=== PATIENT | female | born 1945 | race Caucasian/White ===

== ENCOUNTER 2020-07-17 18:43 | Observation (INO) | payer MEDICARE, SELFPAY ==
[2020-07-17 21:06] LABS: Hemoglobin A1c 6.9 % (4.0-6.0)
[2020-07-17] MEDS ORDERED: Mag-Al 1200 mg/1200 mg/30 ML UDCUP PO SCH (23:30)
[2020-07-17] MEDS ORDERED: ALPRAZolam 0.5 MG TAB ONE (23:33)
[2020-07-17] MEDS ORDERED: Mag-Al 1200 mg/1200 mg/30 ML UDCUP ONE (23:33)
[2020-07-17] MEDS ORDERED: Gabapentin 300 MG CAP PO SCH (23:45)
[2020-07-17] MEDS ORDERED: ALPRAZolam 0.5 MG TAB PO SCH (23:45)
[2020-07-17] MEDS ORDERED: Atorvastatin Calcium 20 MG TAB PO SCH (23:45)
[2020-07-18] MEDS ORDERED: Acetaminophen 325 MG TAB PO PRN (01:55)
[2020-07-18] MEDS ORDERED: Dextrose 5% in Water 1,000 ML IV PRN (02:03)
[2020-07-18] MEDS ORDERED: Nitroglycerin 0.4 MG TAB (25 Tab Bottle) SL PRN (02:03)
[2020-07-18] MEDS ORDERED: HumaLOG 300 UNITS/3 ML VIAL SC PRN ×2 (02:03)
[2020-07-18] MEDS ORDERED: Dextrose 50% Abboject 50 ML SYRINGE SLOW IVP PRN (02:03)
[2020-07-18 02:06] LABS: Troponin I Less than 0.010 ng/mL (< 0.028)
[2020-07-18] MEDS ORDERED: Melatonin 3 MG TAB PO PRN (02:06)
[2020-07-18] MEDS ORDERED: Acetaminophen 325 MG TAB ONE (02:08)
[2020-07-18] MEDS ORDERED: Aspirin Chewable 81 MG TAB PO SCH (02:15)
[2020-07-18 05:19] LABS: #Eosinphils 0.1 thou/uL (0.0-0.7); #Lymphocytes 1.8 thou/uL (1.20-3.40); #Monocytes 0.5 thou/uL (0.11-0.59); #Neutrophils 4.4 thou/uL (1.40-6.50); %Basophils 0.6 % (0.0-1.0); %Eosinophils 1.6 % (0.0-10.0); %Lymphocytes 26.6 % (21.0-51.0); %Monocytes 7.1 % (0.0-10.0); %Neutrophils 64.1 % (42.0-75.0); Hemoglobin 12.2 g/dL (12.0-16.0); Mean Corpuscular HGB CONC 33.3 g/dL (32.0-36.0); Mean Corpuscular Hemoglobin 29.8 pg (27.0-31.0); Mean Corpuscular Volume 89.3 fL (78.0-98.0); Mean Platelet Volume 6.9 fL (7.4-10.4); Platelet Count 253 thou/uL (130-400); Red Blood Cell (RBC) Count 4.09 mill/uL (4.20-5.40); White Blood Cell (WBC) Count 6.9 thou/uL (4.8-10.8)
[2020-07-18 05:22] LABS: SARS-CoV-2 PCR by NAA Not Detected (NotDetected)
[2020-07-18 05:44] LABS: Anion Gap 12 mmol/L (10-20); BUN (Urea Nitrogen) 17 mg/dL (9.8-20.1); Calc. Creatinine Clearance 110 mL/min (70-130); Carbon Dioxide 27 mmol/L (23-31); Cardiac Risk 3.4 (Less than 4.5); Chloride 104 mmol/L (98-107); Cholesterol 167 mg/dl (< 200 Desired); Glucose 165 mg/dL (83-110); HDL Cholesterol 49 mg/dL (>60 Neg Risk); LDL Cholesterol, Calculated 94 mg/dL; Sodium 139 mmol/L (136-145); Triglycerides 118 mg/dL (Less than 150)
[2020-07-18] MEDS ORDERED: Regadenoson 0.4 MG/5 ML SYRINGE ONE (08:42)
[2020-07-18] MEDS ORDERED: Meclizine HCl 25 MG TAB PO PRN ×2 (10:34→12:30)
[2020-07-18] MEDS ORDERED: HYDROcodone/Acetaminophen 5/325 mg Tablet PO SCH ×2 (10:45→20:45)
[2020-07-18] MEDS ORDERED: Enoxaparin Sodium 40 MG/0.4 ML SYRINGE ONE (10:54)
[2020-07-18] MEDS ORDERED: HYDROcodone/Acetaminophen 5/325 mg Tablet ONE (10:54)
[2020-07-18] MEDS ORDERED: Meclizine HCl 25 MG TAB ONE (10:54)
[2020-07-18] MEDS ORDERED: Aspirin Chewable 81 MG TAB ONE (10:54)
[2020-07-18] MEDS: Enoxaparin Sodium 40 MG/0.4 ML SYRINGE SC SCH (11:02)
[2020-07-18] MEDS: Aspirin Chewable 81 MG TAB PO SCH (11:02)
[2020-07-18] MEDS ORDERED: ALPRAZolam 0.5 MG TAB PO PRN (12:40)
[2020-07-18] MEDS ORDERED: tiZANidine HCl 4 MG TAB PO PRN (12:45)
[2020-07-18] MEDS: metFORMIN 500 MG TAB PO SCH (20:01)
[2020-07-18 20:08] VITALS: BMI 33.5
[2020-07-18] MEDS ORDERED: Atorvastatin Calcium 20 MG TAB PO SCH (21:00)
[2020-07-18] MEDS ORDERED: Atorvastatin Calcium 10 MG TAB PO SCH (21:00)
[2020-07-18] MEDS ORDERED: ALPRAZolam 0.5 MG TAB PO SCH (21:00)
[2020-07-18] MEDS ORDERED: Gabapentin 300 MG CAP PO SCH ×2 (21:00)
[2020-07-19] MEDS ORDERED: HYDROcodone/Acetaminophen 5/325 mg Tablet PO SCH (00:15)
[2020-07-19] MEDS: metFORMIN 500 MG TAB PO SCH (08:10)
[2020-07-19] MEDS: Aspirin Chewable 81 MG TAB PO SCH (08:16)
[2020-07-19] MEDS: Enoxaparin Sodium 40 MG/0.4 ML SYRINGE SC SCH (08:16)
[2020-07-19 08:17] VITALS: BP 144/64; TEMP 98.1
[2020-07-19] MEDS ORDERED: Acetaminophen/Codeine 30-300mg Tablet PO SCH (10:15)
== END 2020-07-19 11:40 | disposition home or self-care (01) ==
LOC: ERS 18:43 → ERHOLD 19:59 → 2SW 07-18 19:52
PROVIDERS: ADMIT Family Medicine; ATTEND Family Medicine
DX: R07.89 Other chest pain (principal); I10 Essential (primary) hypertension; E78.5 Hyperlipidemia, unspecified; E11.9 Type 2 diabetes mellitus without complications; K21.9 Gastro-esophageal reflux disease without esophagitis; I48.91 Unspecified atrial fibrillation; I48.92 Unspecified atrial flutter; G43.909 Migraine, unspecified, not intractable, without status migrainosus; G89.29 Other chronic pain; M54.9 Dorsalgia, unspecified; Z86.73 Personal history of transient ischemic attack (TIA), and cerebral infarction without residual deficits; Z87.891 Personal history of nicotine dependence; Z79.84 Long term (current) use of oral hypoglycemic drugs; Z79.899 Other long term (current) drug therapy; Z20.822 Contact with and (suspected) exposure to COVID-19
CPT/HCPCS: 78452; 80048; 80061; 82962 ×2; 83036; 84443; 84484 ×2; 85025; 93005; 93017; 96372 ×2; 99285; A9500; G0378 ×4; U0003; U0005; 36415; 36416; 87635; J1650; J2785

== ENCOUNTER 2020-11-28 12:26 | Outpatient (CLI) | payer MEDICARE | END 2020-11-28 12:27 | disposition home or self-care (01) | LOC: BICMAMMO 12:26 | PROVIDERS: ATTEND Clinical Nurse Specialist Medical-Surgical | DX: N63.20 Unspecified lump in the left breast, unspecified quadrant (principal); N64.89 Other specified disorders of breast; R59.0 Localized enlarged lymph nodes | CPT/HCPCS: 76642; 77066; G0279 ==

== ENCOUNTER 2021-05-16 14:18 | Observation (INO) | payer MEDICARE ==
[~2021-05-16 14:18] MED LIST: Iopamidol 370 76% 100 ML VIAL ONE
[2021-05-16 15:25] LABS: #Lymphocytes 1.1 thou/uL (1.20-3.40); #Monocytes 0.2 thou/uL (0.11-0.59); #Neutrophils 5.7 thou/uL (1.40-6.50); %Basophils 0.6 % (0.0-1.0); %Eosinophils 0.4 % (0.0-10.0); %Lymphocytes 15.8 % (21.0-51.0); %Monocytes 3.1 % (0.0-10.0); %Neutrophils 80.1 % (42.0-75.0); Hemoglobin 11.1 g/dL (12.0-16.0); Mean Corpuscular HGB CONC 32.5 g/dL (32.0-36.0); Mean Corpuscular Hemoglobin 30.9 pg (27.0-31.0); Mean Corpuscular Volume 95.2 fL (78.0-98.0); Mean Platelet Volume 6.3 fL (7.4-10.4); Platelet Count 387 thou/uL (130-400); RBC Distribution Width 13.9 % (11.5-14.5); White Blood Cell (WBC) Count 7.1 thou/uL (4.8-10.8)
[2021-05-16 15:46] LABS: ALT (SGPT) 20 U/L (8-55); AST (SGOT) 12 U/L (5-34); Albumin 3.9 g/dL (3.4-4.8); Alkaline Phosphatase 78 U/L (40-110); Anion Gap 14 mmol/L (10-20); BUN (Urea Nitrogen) 11 mg/dL (9.8-20.1); Bilirubin, Total 0.5 mg/dL (0.2-1.2); Calc. Creatinine Clearance 0 mL/min (70-130); Calcium 8.8 mg/dL (7.8-10.44); Carbon Dioxide 30 mmol/L (23-31); Chloride 99 mmol/L (98-107); Globulin 2.7 g/dL (2.4-3.5); Glucose 190 mg/dL (83-110); Potassium 3.3 mmol/L (3.5-5.1); Protein, Total 6.6 g/dL (5.8-8.1); Sodium 140 mmol/L (136-145)
[2021-05-16] MEDS ORDERED: Electrolyte Replacement Protocol 1 EACH FS SCH ×2 (17:15→19:00)
[2021-05-16 17:22] LABS: SARS-CoV-2 NAA Rapid Test Not Detected (NotDetected)
[2021-05-16] MEDS ORDERED: Meclizine HCl 25 MG TAB PO PRN (17:32)
[2021-05-16] MEDS ORDERED: HumaLOG 300 UNITS/3 ML VIAL SC PRN ×2 (17:34→20:25)
[2021-05-16] MEDS ORDERED: Acetaminophen 325 MG TAB PO PRN (17:34)
[2021-05-16] MEDS ORDERED: Dextrose 5% in Water 1,000 ML IV PRN (17:34)
[2021-05-16] MEDS ORDERED: Ondansetron PF 4 MG/2 ML Vial IVP PRN (17:34)
[2021-05-16] MEDS ORDERED: Dextrose 50% Abboject 50 ML SYRINGE SLOW IVP PRN (17:34)
[2021-05-16 17:39] LABS: Lipase 26 U/L (8-78); Phosphorus 2.7 mg/dL (2.3-4.7)
[2021-05-16] MEDS ORDERED: Enoxaparin Sodium 40 MG/0.4 ML SYRINGE SC SCH (17:45)
[2021-05-16] MEDS ORDERED: Electrolyte Replacement Protocol FS PRN (17:45)
[2021-05-16] MEDS ORDERED: Magnesium 2 GM/50 ML BAG (IN WATER) ONE (17:50)
[2021-05-16] MEDS ORDERED: Potassium Bicarbonate/Cit Ac 25 MEQ TAB PO SCH (18:00)
[2021-05-16] MEDS ORDERED: tiZANidine HCl 4 MG TAB PO PRN (18:06)
[2021-05-16 18:37] LABS: Bilirubin Negative (Negative); Blood, Urine Small (Negative); Glucose, Urine (Dipstick) 100 mg/dL (Negative); Ketone, Urine Negative (Negative); Leukocyte Small (Negative); Nitrite Positive (Negative); Protein, Urine (Dipstick) Trace mg/dL (Neg-Trace)
[2021-05-16 18:43] LABS: Clarity Clear (Clear)
[2021-05-16 18:44] LABS: Bacteria/HPF 2+ HPF (None Seen); RBC/HPF 0-3 HPF (0-3); Squamous Epithelial 0-3 HPF (0-3)
[2021-05-16 19:06] LABS: Troponin I Less than 0.010 ng/mL (< 0.028)
[2021-05-16] MEDS: Magnesium Sulfate 3 GM in Sodium Chloride 0.9% 100 ML IVPB SCH ×2 (19:51→20:43)
[2021-05-16] MEDS ORDERED: cefTRIAXone\\ROCEPHIN 1 GM in Sodium Chloride 0.9% 100 ML IVPB SCH (20:00)
[2021-05-16] MEDS ORDERED: Diphenoxylate HCl/Atropine Tablet PO PRN (20:03)
[2021-05-16 20:11] VITALS: BMI 33.3
[2021-05-16] MEDS: ALPRAZolam 0.5 MG TAB PO PRN (20:44)
[2021-05-16] MEDS: HYDROcodone/Acetaminophen 5/325 mg Tablet PO PRN (20:45)
[2021-05-16] MEDS ORDERED: Gabapentin 300 MG CAP PO SCH (21:00)
[2021-05-16] MEDS ORDERED: Atorvastatin Calcium 10 MG TAB PO SCH (21:00)
[2021-05-17 01:44] LABS: Troponin I Less than 0.010 ng/mL (< 0.028)
[2021-05-17] MEDS: HYDROcodone/Acetaminophen 5/325 mg Tablet PO PRN ×2 (04:28→14:02)
[2021-05-17 05:17] LABS: #Lymphocytes 1.1 thou/uL (1.20-3.40); #Monocytes 0.1 thou/uL (0.11-0.59); #Neutrophils 5.3 thou/uL (1.40-6.50); %Eosinophils 0.2 % (0.0-10.0); %Lymphocytes 16.9 % (21.0-51.0); %Monocytes 1.4 % (0.0-10.0); %Neutrophils 81.5 % (42.0-75.0); Hemoglobin 11.1 g/dL (12.0-16.0); Mean Corpuscular HGB CONC 32.7 g/dL (32.0-36.0); Mean Corpuscular Hemoglobin 30.9 pg (27.0-31.0); Mean Corpuscular Volume 94.6 fL (78.0-98.0); Mean Platelet Volume 6.8 fL (7.4-10.4); Platelet Count 384 thou/uL (130-400); RBC Distribution Width 13.7 % (11.5-14.5); White Blood Cell (WBC) Count 6.5 thou/uL (4.8-10.8)
[2021-05-17 05:24] LABS: Anion Gap 15 mmol/L (10-20); BUN (Urea Nitrogen) 10 mg/dL (9.8-20.1); Calc. Creatinine Clearance 98 mL/min (70-130); Calcium 8.9 mg/dL (7.8-10.44); Carbon Dioxide 28 mmol/L (23-31); Chloride 100 mmol/L (98-107); Glucose 248 mg/dL (83-110); Magnesium 1.9 mg/dL (1.6-2.6); Potassium 4.1 mmol/L (3.5-5.1); Sodium 139 mmol/L (136-145)
[2021-05-17 05:41] LABS: Phosphorus 1.7 mg/dL (2.3-4.7)
[2021-05-17] MEDS ORDERED: Magnesium 2 GM/50 ML 2 GM in Premix Bag 1 BAG IVPB SCH (07:00)
[2021-05-17] MEDS ORDERED: metFORMIN XR 500 MG TAB PO SCH (08:00)
[2021-05-17] MEDS ORDERED: Enoxaparin Sodium 40 MG/0.4 ML SYRINGE SC SCH (09:00)
[2021-05-17] MEDS ORDERED: Aspirin Chewable 81 MG TAB PO SCH (09:00)
[2021-05-17] MEDS: PHOS-NAK 1 PKT PACK PO SCH ×2 (09:00→11:24)
[2021-05-17] MEDS: ALPRAZolam 0.5 MG TAB PO PRN (16:21)
[2021-05-17 16:44] VITALS: BP 131/60; TEMP 97.9
== END 2021-05-17 17:40 | disposition home or self-care (01) ==
LOC: ERS 14:18 → 2NO 17:49
PROVIDERS: ADMIT Internal Medicine; ATTEND Physician Assistant Medical
DX: R09.02 Hypoxemia (principal); R06.02 Shortness of breath; E83.42 Hypomagnesemia; E87.6 Hypokalemia; N39.0 Urinary tract infection, site not specified; C50.912 Malignant neoplasm of unspecified site of left female breast; I48.91 Unspecified atrial fibrillation; E11.9 Type 2 diabetes mellitus without complications; E78.5 Hyperlipidemia, unspecified; K80.20 Calculus of gallbladder without cholecystitis without obstruction; K76.0 Fatty (change of) liver, not elsewhere classified; I08.1 Rheumatic disorders of both mitral and tricuspid valves; Z86.73 Personal history of transient ischemic attack (TIA), and cerebral infarction without residual deficits; Z87.891 Personal history of nicotine dependence; Z79.84 Long term (current) use of oral hypoglycemic drugs; Z79.899 Other long term (current) drug therapy; Z20.822 Contact with and (suspected) exposure to COVID-19; C50.412 Malignant neoplasm of upper-outer quadrant of left female breast
CPT/HCPCS: 71045; 71275; 76705; 80048; 80053 ×2; 81001; 82248; 82962 ×2; 83615; 83690; 83735 ×2; 83880; 84100 ×2; 84484 ×3; 84550; 85025 ×2; 87086; 93005; 93306; 96374; 99285; U0002; 36415; 36416; 81015; 96372; 96375; 96376; G0378; J0696; J1650; J1815; J2405; J3475; J3490; Q9967

== ENCOUNTER 2021-09-10 15:26 | Outpatient (CLI) | payer MEDICARE ==
[2021-09-10 17:52] LABS: #Eosinphils 0.2 10x3/uL (0.0-0.5); #Monocytes 0.6 10x3/uL (0.0-1.1); #Neutrophils 5.2 10x3/uL (1.5-8.4); %Basophils 0.4 % (0.0-2.0); %Lymphocytes 40.5 % (18.0-47.0); %Monocytes 5.8 % (0.0-10.0); Hemoglobin 10.8 g/dL (12.0-15.5); Mean Corpuscular Hemoglobin 29.4 pg (27.0-33.0); Mean Corpuscular Volume 94.8 fl (81.6-98.3); Mean Platelet Volume 10.1 fl (7.4-10.4); Platelet Count 275 10x3/uL (150-450); Red Blood Cell (RBC) Count 3.67 10x6/uL (3.90-5.03); White Blood Cell (WBC) Count 10.1 10x3/uL (3.5-10.5)
== END 2021-09-10 15:27 | disposition home or self-care (01) ==
LOC: LABBT 15:26
PROVIDERS: ATTEND Internal Medicine Cardiovascular Disease
DX: Z01.818 Encounter for other preprocedural examination (principal); Z20.822 Contact with and (suspected) exposure to COVID-19
CPT/HCPCS: 71045; 85025; 93005; U0003; U0005; 93010

== ENCOUNTER 2021-09-13 09:44 | Day surgery (SDC) | payer MEDICARE ==
[2021-09-12 14:42] VITALS: BMI 30.9
[2021-09-13] MEDS ORDERED: Iopamidol 370 76% 50 ML VIAL FS ONE (10:05)
[2021-09-13] MEDS ORDERED: Gentamicin 80 MG/2 ML VIAL ONE (14:25)
[2021-09-13] MEDS ORDERED: CEFAZOLIN 1 GM VIAL ONE (14:25)
[2021-09-13] MEDS ORDERED: Lidocaine 1% (PF) 30 ML VIAL ONE ×2 (14:25→14:35)
[2021-09-13] MEDS ORDERED: ceFAZolin 2 GM/Dextrose 50 ML IVPB ONE (14:25)
[2021-09-13] MEDS ORDERED: Midazolam HCl 2 mg/2 ml Vial ONE (14:30)
[2021-09-13] MEDS ORDERED: Fentanyl 100 MCG/2 ML VIAL ONE (16:05)
[2021-09-13] MEDS ORDERED: HYDROcodone/Acetaminophen 5/325 mg Tablet ONE (18:04)
== END 2021-09-13 18:43 | disposition home or self-care (01) ==
LOC: SDC 09:44
PROVIDERS: ATTEND Internal Medicine Cardiovascular Disease
PROC: 0JH606Z Insertion of Pacemaker, Dual Chamber into Chest Subcutaneous Tissue and Fascia, Open Approach (ICD-10-PCS; principal; 2021-09-13)
PROC: 02H63JZ Insertion of Pacemaker Lead into Right Atrium, Percutaneous Approach (ICD-10-PCS; 2021-09-13)
PROC: 02HK3JZ Insertion of Pacemaker Lead into Right Ventricle, Percutaneous Approach (ICD-10-PCS; 2021-09-13)
DX: I44.1 Atrioventricular block, second degree (principal); I49.5 Sick sinus syndrome; E78.5 Hyperlipidemia, unspecified; E11.9 Type 2 diabetes mellitus without complications; Z85.3 Personal history of malignant neoplasm of breast; Z87.891 Personal history of nicotine dependence; Z79.84 Long term (current) use of oral hypoglycemic drugs; Z79.899 Other long term (current) drug therapy; Z91.013 Allergy to seafood
CPT/HCPCS: 33208; 71045; 75820; 93005; C1785; C1898 ×2; 93010; 99152; 99153; J0690; J1580; J2001; J2250; J3010; Q9967

== ENCOUNTER 2021-09-23 12:52 | Outpatient (CLI) | payer MEDICARE ==
[2021-09-23 15:08] LABS: #Eosinphils 0.1 10x3/uL (0.0-0.5); #Monocytes 0.6 10x3/uL (0.0-1.1); #Neutrophils 6.2 10x3/uL (1.5-8.4); %Basophils 0.4 % (0.0-2.0); %Eosinophils 1.2 % (0.0-6.0); %Lymphocytes 35.4 % (18.0-47.0); %Monocytes 5.7 % (0.0-10.0); %Neutrophils 56.9 % (40.0-75.0); Hemoglobin 12.4 g/dL (12.0-15.5); Mean Corpuscular HGB CONC 31.6 g/dL (32.0-36.0); Mean Corpuscular Hemoglobin 28.4 pg (27.0-33.0); Mean Corpuscular Volume 89.9 fl (81.6-98.3); Mean Platelet Volume 9.3 fl (7.4-10.4); Platelet Count 316 10x3/uL (150-450); RBC Distribution Width 14.4 % (11.5-14.5); Red Blood Cell (RBC) Count 4.36 10x6/uL (3.90-5.03); White Blood Cell (WBC) Count 10.8 10x3/uL (3.5-10.5)
[2021-09-23 15:15] LABS: Anion Gap 17 mmol/L (10-20); BUN (Urea Nitrogen) 12 mg/dL (9.8-20.1); Calc. Creatinine Clearance 0 mL/min (70-130); Carbon Dioxide 29 mmol/L (23-31); Chloride 101 mmol/L (98-107); Glucose 124 mg/dL (83-110); Potassium 4.2 mmol/L (3.5-5.1); Sodium 143 mmol/L (136-145)
== END 2021-09-23 12:53 | disposition home or self-care (01) ==
LOC: LABBT 12:52
PROVIDERS: ATTEND Specialist
DX: Z01.812 Encounter for preprocedural laboratory examination (principal); C50.912 Malignant neoplasm of unspecified site of left female breast; Z20.822 Contact with and (suspected) exposure to COVID-19
CPT/HCPCS: 80048; 85025; U0003; U0005

== ENCOUNTER 2021-09-26 09:37 | Observation (INO) | payer MEDICARE ==
[2021-09-24 13:21] VITALS: BMI 30.9
[2021-09-26] MEDS ORDERED: CEFAZOLIN 2 GM VIAL ONE (09:46)
[2021-09-26] MEDS ORDERED: Sodium Chloride 0.9% 100 ML ONE (09:47)
[2021-09-26] MEDS ORDERED: Ketorolac Tromethamine 30 MG/ML VIAL ONE (09:47)
[2021-09-26] MEDS ORDERED: Lidocaine 1% MPF 2 ML VIAL ONE (09:47)
[2021-09-26] MEDS ORDERED: Acetaminophen 500 MG TAB ONE (09:48)
[2021-09-26] MEDS ORDERED: fentaNYL Citrate/PF 100 MCG/2 ML SYRINGE ONE (09:48)
[2021-09-26] MEDS ORDERED: PROPOFOL 200 MG/20 ML VIAL ONE (10:23)
[2021-09-26] MEDS ORDERED: Ondansetron PF 4 MG/2 ML Vial ONE (10:23)
[2021-09-26] MEDS ORDERED: Lidocaine 1% PF 5 ML VIAL ONE (10:23)
[2021-09-26] MEDS ORDERED: Dexamethasone 20 MG/5 ML VIAL ONE (10:23)
[2021-09-26] MEDS ORDERED: Promethazine HCl 25 MG/ML VIAL IVPB PRN (12:50)
[2021-09-26] MEDS ORDERED: Promethazine HCl 25 MG/ML VIAL IM PRN ×2 (12:50→15:14)
[2021-09-26] MEDS ORDERED: Ondansetron HCl/PF 4 MG/2 ML Vial IVP PRN (12:50)
[2021-09-26] MEDS ORDERED: Fentanyl 100 MCG/2 ML VIAL ONE ×2 (12:58→13:11)
[2021-09-26] MEDS ORDERED: Promethazine HCl 25 MG/ML VIAL ONE (14:00)
[2021-09-26] MEDS ORDERED: Morphine 2 MG/ML VIAL SLOW IVP PRN (15:14)
[2021-09-26] MEDS ORDERED: Dextrose 5% in Water 1,000 ML IV PRN (15:14)
[2021-09-26] MEDS ORDERED: Ondansetron PF 4 MG/2 ML Vial IVP PRN (15:14)
[2021-09-26] MEDS ORDERED: Acetaminophen 325 MG TAB PO PRN (15:14)
[2021-09-26] MEDS ORDERED: Dextrose 50% Abboject 50 ML SYRINGE SLOW IVP PRN (15:14)
[2021-09-26] MEDS ORDERED: ALPRAZolam 1 MG TAB PO PRN (15:14)
[2021-09-26] MEDS ORDERED: hydrALAZINE 20 MG/ML VIAL SLOW IVP PRN (15:14)
[2021-09-26] MEDS: Morphine 4 MG/ML VIAL SLOW IVP PRN ×3 (15:39→20:35)
[2021-09-26] MEDS: D5 1/2 NS w/20 mEq KCL 1,000 ML IV SCH (16:30)
[2021-09-26] MEDS: HYDROcodone/Acetaminophen 7.5/325 mg Tablet PO PRN (16:39)
[2021-09-26] MEDS: Docusate 100 MG CAP PO SCH (20:44)
[2021-09-26] MEDS: Famotidine 20 MG TAB PO SCH (20:45)
[2021-09-26] MEDS ORDERED: Atorvastatin Calcium 10 MG TAB PO SCH (21:00)
[2021-09-26] MEDS ORDERED: Gabapentin 300 MG CAP PO SCH (21:00)
[2021-09-27] MEDS: HYDROcodone/Acetaminophen 7.5/325 mg Tablet PO PRN ×2 (00:22→09:19)
[2021-09-27 05:20] LABS: #Lymphocytes 1.9 thou/uL (1.20-3.40); #Monocytes 0.8 thou/uL (0.11-0.59); #Neutrophils 11.5 thou/uL (1.40-6.50); %Basophils 0.1 % (0.0-1.0); %Eosinophils 0.1 % (0.0-10.0); %Monocytes 5.5 % (0.0-10.0); %Neutrophils 81.2 % (42.0-75.0); Hemoglobin 10.8 g/dL (12.0-16.0); Mean Corpuscular HGB CONC 31.3 g/dL (32.0-36.0); Mean Corpuscular Hemoglobin 29.4 pg (27.0-31.0); Mean Corpuscular Volume 94.2 fL (78.0-98.0); Platelet Count 253 thou/uL (130-400); RBC Distribution Width 14.2 % (11.5-14.5); Red Blood Cell (RBC) Count 3.68 mill/uL (4.20-5.40); White Blood Cell (WBC) Count 14.1 thou/uL (4.8-10.8)
[2021-09-27 05:43] LABS: Anion Gap 13 mmol/L (10-20); BUN (Urea Nitrogen) 17 mg/dL (9.8-20.1); Calc. Creatinine Clearance 80 mL/min (70-130); Carbon Dioxide 26 mmol/L (23-31); Chloride 102 mmol/L (98-107); Glucose 199 mg/dL (83-110); Potassium 4.4 mmol/L (3.5-5.1); Sodium 137 mmol/L (136-145)
[2021-09-27] MEDS: D5 1/2 NS w/20 mEq KCL 1,000 ML IV SCH (06:35)
[2021-09-27] MEDS: Morphine 4 MG/ML VIAL SLOW IVP PRN ×2 (07:04→11:52)
[2021-09-27] MEDS ORDERED: metFORMIN XR 500 MG TAB PO SCH (08:00)
[2021-09-27] MEDS: Famotidine 20 MG TAB PO SCH (09:08)
[2021-09-27] MEDS: Docusate 100 MG CAP PO SCH (09:08)
[2021-09-27 09:12] VITALS: TEMP 98.4
[2021-09-27 12:41] VITALS: BP 118/69
== END 2021-09-27 13:55 | disposition home or self-care (01) ==
LOC: SDC 09:37 → MSONC 12:59
PROVIDERS: ADMIT Specialist; ATTEND Specialist
PROC: 0HTU0ZZ Resection of Left Breast, Open Approach (ICD-10-PCS; principal; 2021-09-26)
PROC: 07T60ZZ Resection of Left Axillary Lymphatic, Open Approach (ICD-10-PCS; 2021-09-26)
DX: C50.412 Malignant neoplasm of upper-outer quadrant of left female breast (principal); C77.3 Secondary and unspecified malignant neoplasm of axilla and upper limb lymph nodes; E11.9 Type 2 diabetes mellitus without complications; I10 Essential (primary) hypertension; Z17.1 Estrogen receptor negative status [ER-]; Z87.891 Personal history of nicotine dependence; Z79.84 Long term (current) use of oral hypoglycemic drugs; Z79.899 Other long term (current) drug therapy; Z91.013 Allergy to seafood
CPT/HCPCS: 19307; 80048; 85025; 96374; 96376 ×2; 97139; C1776; G0378 ×2; 36415; 88309; J0690; J1100; J1885; J2270; J2405; J2550; J2704; J3010; J3480; J3490

== ENCOUNTER 2021-11-07 12:23 | Outpatient (CLI) | payer MEDICARE ==
[2021-11-07 13:49] LABS: Anion Gap 14 mmol/L (10-20); BUN (Urea Nitrogen) 14 mg/dL (9.8-20.1); Calc. Creatinine Clearance 0 mL/min (70-130); Calcium 9.5 mg/dL (7.8-10.44); Carbon Dioxide 30 mmol/L (23-31); Chloride 101 mmol/L (98-107); Estimated GFR 86; Glucose 142 mg/dL (83-110); Potassium 4.1 mmol/L (3.5-5.1); Sodium 141 mmol/L (136-145)
[2021-11-07 13:59] LABS: #Eosinphils 0.2 10x3/uL (0.0-0.5); #Monocytes 0.7 10x3/uL (0.0-1.1); #Neutrophils 5.9 10x3/uL (1.5-8.4); %Basophils 0.2 % (0.0-2.0); %Eosinophils 2.6 % (0.0-6.0); %Lymphocytes 25.1 % (18.0-47.0); %Monocytes 7.5 % (0.0-10.0); %Neutrophils 63.8 % (40.0-75.0); Hemoglobin 11.4 g/dL (12.0-15.5); Mean Corpuscular HGB CONC 32.7 g/dL (32.0-36.0); Mean Corpuscular Hemoglobin 28.4 pg (27.0-33.0); Mean Corpuscular Volume 86.8 fl (81.6-98.3); Mean Platelet Volume 9.7 fl (7.4-10.4); Platelet Count 133 10x3/uL (150-450); RBC Distribution Width 15.1 % (11.5-14.5); Red Blood Cell (RBC) Count 4.02 10x6/uL (3.90-5.03); White Blood Cell (WBC) Count 9.2 10x3/uL (3.5-10.5)
== END 2021-11-07 12:24 | disposition home or self-care (01) ==
LOC: LABBT 12:23
PROVIDERS: ATTEND Specialist
DX: Z01.818 Encounter for other preprocedural examination (principal); C50.912 Malignant neoplasm of unspecified site of left female breast; Z20.822 Contact with and (suspected) exposure to COVID-19
CPT/HCPCS: 80048; 85025; 87811; 93005; 93010

== ENCOUNTER 2021-11-19 10:42 | Day surgery (SDC) | payer MEDICARE ==
[2021-11-19] MEDS ORDERED: Ketorolac Tromethamine 30 MG/ML VIAL ONE (11:12)
[2021-11-19] MEDS ORDERED: Bupivacaine/Epinephrine 0.25% 30 ML VIAL ONE (11:49)
[2021-11-19] MEDS ORDERED: Lidocaine 2% PF 5 ML VIAL ONE (11:50)
[2021-11-19] MEDS ORDERED: fentaNYL Citrate/PF 100 MCG/2 ML SYRINGE ONE (11:51)
[2021-11-19] MEDS ORDERED: Propofol 500 MG/50 ML VIAL ONE (11:51)
[2021-11-19] MEDS ORDERED: Ketamine 50 MG/ML (10ML VIAL) ONE (11:59)
[2021-11-19] MEDS ORDERED: Sodium Chloride 0.9% 100 ML ONE (12:02)
[2021-11-19] MEDS ORDERED: CEFAZOLIN 2 GM VIAL ONE (12:02)
[2021-11-19] MEDS ORDERED: Lidocaine 1% PF 5 ML VIAL ONE (12:15)
[2021-11-19] MEDS ORDERED: PROPOFOL 200 MG/20 ML VIAL ONE (12:15)
[2021-11-19] MEDS ORDERED: Lidocaine-Prilocaine 2.5% Cream 5 GM TUBE ONE (14:12)
== END 2021-11-19 15:05 | disposition home or self-care (01) ==
LOC: SDC 10:42
PROVIDERS: ATTEND Specialist
PROC: 0JH63WZ Insertion of Totally Implantable Vascular Access Device into Chest Subcutaneous Tissue and Fascia, Percutaneous Approach (ICD-10-PCS; principal; 2021-11-19)
PROC: 02HV33Z Insertion of Infusion Device into Superior Vena Cava, Percutaneous Approach (ICD-10-PCS; 2021-11-19)
DX: C50.912 Malignant neoplasm of unspecified site of left female breast (principal); C77.9 Secondary and unspecified malignant neoplasm of lymph node, unspecified; Z79.84 Long term (current) use of oral hypoglycemic drugs; Z79.899 Other long term (current) drug therapy; Z91.013 Allergy to seafood; Z91.048 Other nonmedicinal substance allergy status; Z20.822 Contact with and (suspected) exposure to COVID-19
CPT/HCPCS: 36561; 71045; 87811; C1788; J0690; J1642; J1885; J2001; J2704; J3490

== ENCOUNTER 2021-11-22 12:02 | Outpatient (CLI) | payer MEDICARE | END 2021-11-22 12:03 | disposition home or self-care (01) | LOC: CT 12:02 | PROVIDERS: ATTEND Radiology Radiation Oncology | DX: R51.9 Headache, unspecified (principal); C50.919 Malignant neoplasm of unspecified site of unspecified female breast | CPT/HCPCS: 70470 ==

== ENCOUNTER 2022-01-15 16:39 | Observation (INO) | payer MEDICARE ==
[~2022-01-15 16:39] MED LIST changes: -Iopamidol 370 76% 100 ML VIAL ONE; +Iopamidol 370 76% 50 ML VIAL FS ONE
[2022-01-15] MEDS ORDERED: Morphine 4 MG/ML VIAL ONE (17:14)
[2022-01-15] MEDS ORDERED: Ondansetron PF 4 MG/2 ML Vial ONE (17:15)
[2022-01-15] MEDS ORDERED: Ketorolac Tromethamine 30 MG/ML VIAL ONE (17:15)
[2022-01-15 17:40] LABS: #Lymphocytes 1.5 thou/uL (1.20-3.40); #Monocytes 0.8 thou/uL (0.11-0.59); #Neutrophils 5.4 thou/uL (1.40-6.50); %Basophils 0.2 % (0.0-1.0); %Eosinophils 0.5 % (0.0-10.0); %Lymphocytes 19.7 % (21.0-51.0); %Monocytes 10.1 % (0.0-10.0); %Neutrophils 69.5 % (42.0-75.0); Hemoglobin 11.5 g/dL (12.0-16.0); Mean Corpuscular HGB CONC 31.3 g/dL (32.0-36.0); Mean Corpuscular Volume 89.5 fL (78.0-98.0); Mean Platelet Volume 6.9 fL (7.4-10.4); Platelet Count 249 thou/uL (130-400); RBC Distribution Width 14.7 % (11.5-14.5); White Blood Cell (WBC) Count 7.8 thou/uL (4.8-10.8)
[2022-01-15 18:03] LABS: ALT (SGPT) 12 U/L (8-55); AST (SGOT) 15 U/L (5-34); Albumin 3.9 g/dL (3.4-4.8); Alkaline Phosphatase 91 U/L (40-110); Anion Gap 14 mmol/L (10-20); BUN (Urea Nitrogen) 8 mg/dL (9.8-20.1); Bilirubin, Total 0.7 mg/dL (0.2-1.2); Calc. Creatinine Clearance 0 mL/min (70-130); Calcium 9.2 mg/dL (7.8-10.44); Carbon Dioxide 31 mmol/L (23-31); Chloride 99 mmol/L (98-107); Estimated GFR 84; Globulin 2.8 g/dL (2.4-3.5); Glucose 161 mg/dL (83-110); Lipase 28 U/L (8-78); Magnesium 1.8 mg/dL (1.6-2.6); Potassium 3.6 mmol/L (3.5-5.1); Protein, Total 6.7 g/dL (5.8-8.1); Sodium 140 mmol/L (136-145)
[2022-01-15] MEDS ORDERED: Aspirin Chewable 81 MG TAB ONE (19:42)
[2022-01-15] MEDS ORDERED: Dextrose 5% in Water 1,000 ML IV PRN (21:42)
[2022-01-15] MEDS ORDERED: Dextrose 50% Abboject 50 ML SYRINGE SLOW IVP PRN (21:42)
[2022-01-15] MEDS ORDERED: HumaLOG 300 UNITS/3 ML VIAL SC PRN ×2 (21:42)
[2022-01-15] MEDS ORDERED: Ondansetron ODT 4 MG TAB PO PRN (21:44)
[2022-01-15] MEDS ORDERED: Acetaminophen 325 MG TAB PO PRN (21:44)
[2022-01-15] MEDS ORDERED: Senokot S 8.6-50 MG TAB PO PRN (21:44)
[2022-01-15] MEDS ORDERED: Ondansetron PF 4 MG/2 ML Vial IVP PRN (21:44)
[2022-01-15] MEDS ORDERED: Sodium Chloride 0.9% 1,000 ML IV SCH (21:45)
[2022-01-15] MEDS ORDERED: Nitroglycerin 2% Ointment 1 INCH/1 GM Packet ONE (23:14)
[2022-01-15] MEDS: Nitroglycerin 2% Ointment 1 INCH/1 GM Packet TOP SCH (23:31)
[2022-01-15] MEDS ORDERED: ALPRAZolam 0.5 MG TAB ONE (23:36)
[2022-01-15] MEDS: ALPRAZolam 1 MG TAB PO PRN (23:42)
[2022-01-16] MEDS ORDERED: Acetaminophen 325 MG Suppository ONE (02:11)
[2022-01-16] MEDS ORDERED: Acetaminophen 325 MG TAB ONE (02:12)
[2022-01-16 05:22] LABS: #Eosinphils 0.1 thou/uL (0.0-0.7); #Lymphocytes 1.2 thou/uL (1.20-3.40); #Monocytes 0.7 thou/uL (0.11-0.59); #Neutrophils 5.5 thou/uL (1.40-6.50); %Basophils 0.1 % (0.0-1.0); %Eosinophils 1.2 % (0.0-10.0); %Lymphocytes 16.2 % (21.0-51.0); %Monocytes 9.3 % (0.0-10.0); %Neutrophils 73.1 % (42.0-75.0); Hemoglobin 10.3 g/dL (12.0-16.0); Mean Corpuscular Hemoglobin 27.9 pg (27.0-31.0); Mean Corpuscular Volume 89.9 fL (78.0-98.0); Mean Platelet Volume 6.9 fL (7.4-10.4); Platelet Count 211 thou/uL (130-400); RBC Distribution Width 14.7 % (11.5-14.5); Red Blood Cell (RBC) Count 3.68 mill/uL (4.20-5.40); White Blood Cell (WBC) Count 7.5 thou/uL (4.8-10.8)
[2022-01-16 05:24] LABS: Hemoglobin A1c 6.1 % (4.0-6.0)
[2022-01-16 05:33] LABS: Anion Gap 12 mmol/L (10-20); BUN (Urea Nitrogen) 10 mg/dL (9.8-20.1); Calc. Creatinine Clearance 0 mL/min (70-130); Calcium 9.2 mg/dL (7.8-10.44); Carbon Dioxide 29 mmol/L (23-31); Cardiac Risk 3.2 (Less than 4.5); Chloride 102 mmol/L (98-107); Cholesterol 137 mg/dl (< 200 Desired); Estimated GFR 90; Glucose 132 mg/dL (83-110); HDL Cholesterol 43 mg/dL (>60 Neg Risk); LDL Cholesterol, Calculated 73 mg/dL; Magnesium 1.7 mg/dL (1.6-2.6); Potassium 3.4 mmol/L (3.5-5.1); Sodium 140 mmol/L (136-145); Triglycerides 106 mg/dL (Less than 150)
[2022-01-16] MEDS ORDERED: Nitroglycerin 2% Ointment 1 INCH/1 GM Packet ONE ×2 (07:05→12:34)
[2022-01-16] MEDS: Nitroglycerin 2% Ointment 1 INCH/1 GM Packet TOP SCH ×3 (07:10→21:42)
[2022-01-16] MEDS ORDERED: Potassium Chloride 20 MEQ TAB PO SCH (07:45)
[2022-01-16] MEDS: Gabapentin 300 MG CAP PO SCH ×2 (09:00→19:38)
[2022-01-16] MEDS ORDERED: Ondansetron PF 4 MG/2 ML Vial ONE (10:11)
[2022-01-16 10:43] LABS: SARS-CoV-2 NAA Rapid Test Not Detected (NotDetected)
[2022-01-16 17:02] VITALS: BMI 28.0
[2022-01-16] MEDS: HYDROcodone/Acetaminophen 7.5/325 mg Tablet PO PRN (18:07)
[2022-01-16] MEDS: Atorvastatin Calcium 10 MG TAB PO SCH (19:38)
[2022-01-16] MEDS: ALPRAZolam 1 MG TAB PO PRN (19:42)
[2022-01-17] MEDS: HYDROcodone/Acetaminophen 7.5/325 mg Tablet PO PRN ×2 (04:20→16:03)
[2022-01-17 05:04] LABS: #Eosinphils 0.1 thou/uL (0.0-0.7); #Lymphocytes 1.4 thou/uL (1.20-3.40); #Monocytes 0.5 thou/uL (0.11-0.59); #Neutrophils 4.2 thou/uL (1.40-6.50); %Basophils 0.3 % (0.0-1.0); %Eosinophils 1.6 % (0.0-10.0); %Lymphocytes 22.2 % (21.0-51.0); %Monocytes 7.7 % (0.0-10.0); %Neutrophils 68.2 % (42.0-75.0); Hemoglobin 10.2 g/dL (12.0-16.0); Mean Corpuscular Hemoglobin 27.8 pg (27.0-31.0); Mean Corpuscular Volume 89.5 fL (78.0-98.0); Mean Platelet Volume 6.9 fL (7.4-10.4); Platelet Count 245 thou/uL (130-400); RBC Distribution Width 14.5 % (11.5-14.5); Red Blood Cell (RBC) Count 3.67 mill/uL (4.20-5.40); White Blood Cell (WBC) Count 6.2 thou/uL (4.8-10.8)
[2022-01-17 05:20] LABS: Anion Gap 15 mmol/L (10-20); BUN (Urea Nitrogen) 5 mg/dL (9.8-20.1); Calc. Creatinine Clearance 83 mL/min (70-130); Calcium 9.5 mg/dL (7.8-10.44); Carbon Dioxide 28 mmol/L (23-31); Chloride 101 mmol/L (98-107); Estimated GFR 89; Glucose 132 mg/dL (83-110); Potassium 3.5 mmol/L (3.5-5.1); Sodium 140 mmol/L (136-145)
[2022-01-17] MEDS: Nitroglycerin 2% Ointment 1 INCH/1 GM Packet TOP SCH (05:56)
[2022-01-17] MEDS: Gabapentin 300 MG CAP PO SCH ×2 (08:31→20:01)
[2022-01-17] MEDS ORDERED: Meclizine HCl 25 MG TAB PO PRN ×2 (10:43→17:12)
[2022-01-17] MEDS: ALPRAZolam 1 MG TAB PO PRN (20:01)
[2022-01-17] MEDS: Atorvastatin Calcium 10 MG TAB PO SCH (20:01)
[2022-01-18 07:58] VITALS: BP 147/63; TEMP 98.1
[2022-01-18] MEDS ORDERED: metFORMIN XR 500 MG TAB PO SCH (08:00)
[2022-01-18] MEDS ORDERED: Multivitamin W/ Minerals 1 TAB PO SCH (09:00)
[2022-01-18] MEDS: Gabapentin 300 MG CAP PO SCH (09:18)
[2022-01-18] MEDS: HYDROcodone/Acetaminophen 7.5/325 mg Tablet PO PRN (09:51)
[2022-01-18] MEDS ORDERED: Metoprolol Tartrate 25 MG TAB PO SCH ×2 (10:30→21:00)
== END 2022-01-18 11:19 | disposition home or self-care (01) ==
LOC: ERS 16:39 → ERHOLD 21:38 → 2SW 01-16 15:33
PROVIDERS: ADMIT Internal Medicine; ATTEND Internal Medicine
DX: R07.81 Pleurodynia (principal); C50.912 Malignant neoplasm of unspecified site of left female breast; D63.0 Anemia in neoplastic disease; E11.9 Type 2 diabetes mellitus without complications; E78.5 Hyperlipidemia, unspecified; R79.1 Abnormal coagulation profile; I10 Essential (primary) hypertension; G89.29 Other chronic pain; M54.9 Dorsalgia, unspecified; I48.0 Paroxysmal atrial fibrillation; I08.8 Other rheumatic multiple valve diseases; Z86.73 Personal history of transient ischemic attack (TIA), and cerebral infarction without residual deficits; Z87.891 Personal history of nicotine dependence; Z79.84 Long term (current) use of oral hypoglycemic drugs; Z79.899 Other long term (current) drug therapy; Z91.013 Allergy to seafood; Z91.048 Other nonmedicinal substance allergy status; Z95.0 Presence of cardiac pacemaker; Z20.822 Contact with and (suspected) exposure to COVID-19
CPT/HCPCS: 71045; 71275; 80048 ×2; 80053; 80061; 82962 ×3; 83036; 83690; 83735 ×2; 84484 ×3; 85025 ×3; 85379; 93005 ×2; 93306; 96374; 96375; 96376; 99285; G0378 ×4; U0002; 36415; 36416; 93010; J1885; J2270; J2405; J7050; Q0162; Q9967

== ENCOUNTER 2022-10-29 12:42 | Outpatient (CLI) | payer MEDICARE | END 2022-10-29 12:43 | disposition home or self-care (01) | LOC: BICMAMMO 12:42 | PROVIDERS: ATTEND Specialist | DX: C50.412 Malignant neoplasm of upper-outer quadrant of left female breast (principal) | CPT/HCPCS: 77065; G0279 ==

== ENCOUNTER 2023-01-16 12:07 | Outpatient (CLI) | payer MEDICARE ==
[~2023-01-16 12:07] MED LIST changes: +Iopamidol 370 76% 100 ML VIAL ONE; -Iopamidol 370 76% 50 ML VIAL FS ONE
== END 2023-01-16 12:08 | disposition home or self-care (01) ==
LOC: CT 12:07
PROVIDERS: ATTEND Internal Medicine Hematology & Oncology
DX: C50.412 Malignant neoplasm of upper-outer quadrant of left female breast (principal); R59.0 Localized enlarged lymph nodes; K80.20 Calculus of gallbladder without cholecystitis without obstruction; J98.4 Other disorders of lung; Z98.890 Other specified postprocedural states
CPT/HCPCS: 71260; 82565; Q9967

== ENCOUNTER 2024-01-06 08:59 | Inpatient (IN) | payer MEDICARE ==
[2024-01-06 19:51] VITALS: BMI 33.1
[2024-01-06] MEDS ORDERED: Insulin Lispro 100 UNIT/ML 10 ML VIAL SC PRN ×2 (20:39)
[2024-01-06] MEDS ORDERED: Glucagon 1 MG/ML KIT IM PRN (20:39)
[2024-01-06] MEDS ORDERED: Dextrose 5% in Water 1,000 ML IV PRN (20:39)
[2024-01-06] MEDS ORDERED: Dextrose 50% Abboject 50 ML SYRINGE SLOW IVP PRN (20:39)
[2024-01-06] MEDS: Furosemide 40 MG (4 mL) VIAL SLOW IVP SCH (21:40)
[2024-01-06] MEDS: Nitroglycerin 2% Ointment 1 INCH/1 GM Packet TOP SCH (21:41)
[2024-01-06 21:52] LABS: #Basophils 0.03 10x3/uL (0.0-0.2); %Basophils 0.4 % (0.0-1.0); %Eosinophils 1.8 % (0.0-10.0); %Lymphocytes 20.2 % (21.0-51.0); %Monocytes 7.9 % (0.0-10.0); %Neutrophils 69.4 % (42.0-75.0); Hematocrit 29.6 % (36.0-47.0); Hemoglobin 9.1 g/dL (12.0-16.0); Mean Corpuscular HGB CONC 30.7 g/dL (32.0-36.0); Mean Corpuscular Hemoglobin 28.8 pg (27.0-31.0); Mean Corpuscular Volume 93.7 fL (78.0-98.0); Mean Platelet Volume 9.1 fL (7.4-10.4); Platelet Count 259 10x3/uL (130-400); RBC Distribution Width 13.5 % (11.5-14.5); Red Blood Cell (RBC) Count 3.16 mill/uL (4.20-5.40)
[2024-01-06 22:07] LABS: PTT 27.3 sec (22.9-36.1); Prothrombin Time 12.8 sec (12.0-14.7)
[2024-01-06 22:14] LABS: Troponin I 0.106 ng/mL (< 0.028)
[2024-01-07] MEDS: Ipratropium/Albuterol 3 ML NEB EZPAP PRN (02:21)
[2024-01-07 04:05] LABS: #Basophils Less than 0.03 10x3/uL (0.0-0.2); %Basophils 0.3 % (0.0-1.0); %Eosinophils 2.5 % (0.0-10.0); %Lymphocytes 18.8 % (21.0-51.0); %Neutrophils 70.1 % (42.0-75.0); Hematocrit 33.4 % (36.0-47.0); Hemoglobin 10.4 g/dL (12.0-16.0); Mean Corpuscular HGB CONC 31.1 g/dL (32.0-36.0); Mean Platelet Volume 9.1 fL (7.4-10.4); Platelet Count 263 10x3/uL (130-400); RBC Distribution Width 13.5 % (11.5-14.5); Red Blood Cell (RBC) Count 3.59 mill/uL (4.20-5.40)
[2024-01-07 04:17] LABS: Iron 28 ug/dL (50-170); Iron Binding Capacity, Total 384 mcg/dL (265-497)
[2024-01-07 04:20] LABS: Anion Gap 10 mmol/L (10-20); BUN (Urea Nitrogen) 15 mg/dL (9.8-20.1); Calc. Creatinine Clearance 75 mL/min (70-130); Carbon Dioxide 33 mmol/L (23-31); Chloride 101 mmol/L (98-107); Potassium 3.7 mmol/L (3.5-5.1); Sodium 140 mmol/L (136-145)
[2024-01-07 04:21] LABS: Calcium 9.3 mg/dL (7.8-10.44); Cardiac Risk 3.5 (Less than 4.5); Cholesterol 169 mg/dl (< 200 Desired); Estimated GFR 69; Glucose 163 mg/dL (83-110); HDL Cholesterol 48 mg/dL (>60 Neg Risk); Iron 29 ug/dL (50-170); Iron Binding Capacity, Total 388 mcg/dL (265-497); LDL Cholesterol, Calculated 85 mg/dL; Triglycerides 179 mg/dL (Less than 150)
[2024-01-07 04:46] LABS: Ferritin 15.77 ng/mL (10-291)
[2024-01-07] MEDS: Furosemide 20 MG (2 mL) VIAL SLOW IVP SCH (05:24)
[2024-01-07] MEDS ORDERED: Enoxaparin 40 MG (0.4 mL) SYRINGE SC SCH (09:00)
[2024-01-07] MEDS ORDERED: DILTIAZEM HCL 240 MG PO SCH (09:00)
[2024-01-07] MEDS: Ferrous Sulfate 325 MG TAB PO SCH (09:28)
[2024-01-07] MEDS: dilTIAZem CD 240 MG CAP PO SCH (09:28)
[2024-01-07] MEDS: Nitroglycerin 0.4 MG TAB (25 Tab Bottle) SL PRN (10:05)
[2024-01-07 10:28] LABS: Troponin I 0.099 ng/mL (< 0.028)
[2024-01-07] MEDS: Morphine 2 MG/ML VIAL SLOW IVP PRN (11:54)
[2024-01-07] MEDS: Ondansetron PF 4 MG/2 ML Vial IVP PRN (16:13)
[2024-01-07] MEDS: tiZANidine HCl 4 MG TAB PO PRN (16:58)
[2024-01-07] MEDS ORDERED: Communication Order-Pharmacy FS SCH (17:15)
[2024-01-07] MEDS: Atorvastatin Calcium 10 MG TAB PO SCH (20:50)
[2024-01-07] MEDS: Gabapentin 300 MG CAP PO SCH (20:51)
[2024-01-07] MEDS ORDERED: Simvastatin 20 MG TAB PO SCH (21:00)
[2024-01-07] MEDS: Sodium Chloride 0.9% 250 ML IV SCH (23:57)
[2024-01-08 04:41] LABS: #Basophils 0.03 10x3/uL (0.0-0.2); %Basophils 0.4 % (0.0-1.0); %Eosinophils 2.3 % (0.0-10.0); %Lymphocytes 21.5 % (21.0-51.0); %Monocytes 8.2 % (0.0-10.0); %Neutrophils 67.3 % (42.0-75.0); Hematocrit 32.7 % (36.0-47.0); Hemoglobin 10.4 g/dL (12.0-16.0); Mean Corpuscular HGB CONC 31.8 g/dL (32.0-36.0); Mean Corpuscular Hemoglobin 28.7 pg (27.0-31.0); Mean Corpuscular Volume 90.1 fL (78.0-98.0); Mean Platelet Volume 9.3 fL (7.4-10.4); Platelet Count 251 10x3/uL (130-400); RBC Distribution Width 13.6 % (11.5-14.5); Red Blood Cell (RBC) Count 3.63 mill/uL (4.20-5.40)
[2024-01-08 04:58] LABS: Anion Gap 13 mmol/L (10-20); BUN (Urea Nitrogen) 18 mg/dL (9.8-20.1); Calc. Creatinine Clearance 68 mL/min (70-130); Calcium 9.2 mg/dL (7.8-10.44); Carbon Dioxide 30 mmol/L (23-31); Chloride 97 mmol/L (98-107); Estimated GFR 63; Glucose 140 mg/dL (83-110); Potassium 3.6 mmol/L (3.5-5.1); Sodium 136 mmol/L (136-145)
[2024-01-08] MEDS: ALPRAZolam 0.5 MG TAB PO SCH (08:31)
[2024-01-08] MEDS: Escitalopram Oxalate 20 mg Tablet PO SCH (08:31)
[2024-01-08] MEDS: Pantoprazole DR 40 MG TAB PO SCH (08:32)
[2024-01-08] MEDS ORDERED: Heparin 10,000 UNITS/ 10 ML VIAL ONE ×2 (08:37→11:14)
[2024-01-08] MEDS ORDERED: Verapamil 5 MG/2 ML VIAL ONE (08:37)
[2024-01-08] MEDS ORDERED: Nitroglycerin 50 MG/250 ML BOT 250 ML ONE (08:38)
[2024-01-08] MEDS ORDERED: Enoxaparin 40 MG (0.4 mL) SYRINGE SC SCH (09:00)
[2024-01-08] MEDS ORDERED: Iopamidol 370 76% 100 ML VIAL ONE (09:07)
[2024-01-08] MEDS ORDERED: fentaNYL 50 mcg/mL 1 mL Vial ONE (10:28)
[2024-01-08] MEDS ORDERED: Midazolam HCl 2 mg/2 ml Vial ONE (10:28)
[2024-01-08] MEDS ORDERED: TICAGRELOR 90 MG TABLET ONE (11:12)
[2024-01-08] MEDS ORDERED: Morphine 2 MG/ML VIAL ONE (12:10)
[2024-01-08] MEDS: Sodium Chloride 0.9% 250 ML IV SCH (20:02)
[2024-01-08] MEDS: Atorvastatin Calcium 40 MG TAB PO SCH (21:32)
[2024-01-08] MEDS: Sacubitril 24MG/Valsartan 26 MG TAB PO SCH (21:33)
[2024-01-08] MEDS: TICAGRELOR 90 MG TABLET PO SCH (21:33)
[2024-01-08] MEDS: Insulin Lispro 100 UNIT/ML 10 ML VIAL SC PRN (21:46)
[2024-01-09] MEDS: Metoclopramide HCl 10 MG (2 mL) VIAL IVP SCH (03:12)
[2024-01-09 04:30] LABS: #Basophils Less than 0.03 10x3/uL (0.0-0.2); %Basophils 0.2 % (0.0-1.0); %Eosinophils 1.3 % (0.0-10.0); %Lymphocytes 14.1 % (21.0-51.0); %Monocytes 8.1 % (0.0-10.0); %Neutrophils 75.7 % (42.0-75.0); Hematocrit 31.8 % (36.0-47.0); Hemoglobin 10.1 g/dL (12.0-16.0); Mean Corpuscular HGB CONC 31.8 g/dL (32.0-36.0); Mean Corpuscular Volume 91.4 fL (78.0-98.0); Mean Platelet Volume 9.1 fL (7.4-10.4); Platelet Count 290 10x3/uL (130-400); RBC Distribution Width 13.3 % (11.5-14.5); Red Blood Cell (RBC) Count 3.48 mill/uL (4.20-5.40)
[2024-01-09 04:51] LABS: Troponin I 0.164 ng/mL (< 0.028)
[2024-01-09 04:58] LABS: ALT (SGPT) 12 U/L (8-55); AST (SGOT) 15 U/L (5-34); Albumin 3.5 g/dL (3.4-4.8); Alkaline Phosphatase 72 U/L (40-110); Anion Gap 13 mmol/L (10-20); BUN (Urea Nitrogen) 15 mg/dL (9.8-20.1); Bilirubin, Total 0.8 mg/dL (0.2-1.2); Calc. Creatinine Clearance 66 mL/min (70-130); Calcium 9.4 mg/dL (7.8-10.44); Carbon Dioxide 27 mmol/L (23-31); Chloride 101 mmol/L (98-107); Estimated GFR 63; Globulin 2.9 g/dL (2.4-3.5); Glucose 182 mg/dL (83-110); Potassium 4.1 mmol/L (3.5-5.1); Protein, Total 6.4 g/dL (5.8-8.1); Sodium 137 mmol/L (136-145)
[2024-01-09] MEDS: Sodium Chloride 0.9% 500 ML IV SCH (06:00)
[2024-01-09] MEDS: Magnesium 2 GM/50 ML(in water) 2 GM in Premix 1 BAG IVPB SCH (06:46)
[2024-01-09] MEDS: Promethazine HCl 12.5 MG in Sodium Chloride 0.9% 50 ML IVPB SCH (10:05)
[2024-01-09] MEDS: Aspirin Chewable 81 MG TAB PO SCH (10:06)
[2024-01-09] MEDS: Dapagliflozin Propanediol 10 MG TAB PO SCH (10:07)
[2024-01-09] MEDS: Insulin Lispro 100 UNIT/ML 10 ML VIAL SC PRN (13:18)
[2024-01-09] MEDS: ALPRAZolam 0.5 MG TAB PO SCH (21:30)
[2024-01-10] MEDS: Furosemide 40 MG (4 mL) VIAL SLOW IVP SCH (14:08)
[2024-01-10] MEDS: HYDROcodone/Acetaminophen 5/325 mg Tablet PO PRN (18:17)
[2024-01-10] MEDS: Ondansetron ODT 4 MG TAB PO PRN (21:41)
[2024-01-11 04:02] VITALS: TEMP 97.9
[2024-01-11 04:48] LABS: #Basophils 0.03 10x3/uL (0.0-0.2); %Basophils 0.4 % (0.0-1.0); %Lymphocytes 19.2 % (21.0-51.0); %Monocytes 9.4 % (0.0-10.0); %Neutrophils 67.8 % (42.0-75.0); Hematocrit 37.8 % (36.0-47.0); Hemoglobin 12.2 g/dL (12.0-16.0); Mean Corpuscular HGB CONC 32.3 g/dL (32.0-36.0); Mean Corpuscular Hemoglobin 28.5 pg (27.0-31.0); Mean Corpuscular Volume 88.3 fL (78.0-98.0); Mean Platelet Volume 9.3 fL (7.4-10.4); Platelet Count 310 10x3/uL (130-400); RBC Distribution Width 13.6 % (11.5-14.5); Red Blood Cell (RBC) Count 4.28 mill/uL (4.20-5.40)
[2024-01-11 05:06] LABS: Anion Gap 15 mmol/L (10-20); BUN (Urea Nitrogen) 23 mg/dL (9.8-20.1); Calc. Creatinine Clearance 62 mL/min (70-130); Calcium 9.6 mg/dL (7.8-10.44); Carbon Dioxide 26 mmol/L (23-31); Chloride 99 mmol/L (98-107); Estimated GFR 58; Glucose 146 mg/dL (83-110); Potassium 3.6 mmol/L (3.5-5.1); Sodium 136 mmol/L (136-145)
[2024-01-11] MEDS: Furosemide 40 MG (4 mL) VIAL SLOW IVP SCH (09:19)
[2024-01-11] MEDS: Clopidogrel Bisulfate 75 MG TAB PO SCH (09:19)
[2024-01-11 09:29] VITALS: BP 115/68
[2024-01-11] MEDS: Acetaminophen 325 MG TAB PO PRN (14:13)
== END 2024-01-11 16:13 | disposition home or self-care (01) | DRG 321 ==
LOC: 2NO 19:45
PROVIDERS: ADMIT Internal Medicine; ATTEND Hospitalist
PROC: 0270356 Dilation of Coronary Artery, One Artery, Bifurcation, with Two Drug-eluting Intraluminal Devices, Percutaneous Approach (ICD-10-PCS; principal; 2024-01-08)
PROC: 4A023N7 Measurement of Cardiac Sampling and Pressure, Left Heart, Percutaneous Approach (ICD-10-PCS; 2024-01-08)
PROC: B2111ZZ Fluoroscopy of Multiple Coronary Arteries using Low Osmolar Contrast (ICD-10-PCS; 2024-01-08)
DX: I11.0 Hypertensive heart disease with heart failure (principal); I21.A1 Myocardial infarction type 2; I50.33 Acute on chronic diastolic (congestive) heart failure; J96.01 Acute respiratory failure with hypoxia; I25.10 Atherosclerotic heart disease of native coronary artery without angina pectoris; I48.0 Paroxysmal atrial fibrillation; E11.9 Type 2 diabetes mellitus without complications; I42.0 Dilated cardiomyopathy; D64.9 Anemia, unspecified; G43.909 Migraine, unspecified, not intractable, without status migrainosus; F41.9 Anxiety disorder, unspecified; E78.5 Hyperlipidemia, unspecified; Z91.013 Allergy to seafood; Z91.048 Other nonmedicinal substance allergy status; Z86.73 Personal history of transient ischemic attack (TIA), and cerebral infarction without residual deficits; Z85.3 Personal history of malignant neoplasm of breast; Z85.820 Personal history of malignant melanoma of skin; Z87.891 Personal history of nicotine dependence; Z95.0 Presence of cardiac pacemaker; Z90.12 Acquired absence of left breast and nipple; Z90.710 Acquired absence of both cervix and uterus; Z79.84 Long term (current) use of oral hypoglycemic drugs; Z79.899 Other long term (current) drug therapy; I25.5 Ischemic cardiomyopathy
CPT/HCPCS: 36415; 36416; 71045; 80048; 80053; 80061; 82607; 82728; 83540; 83550; 83880; 84484; 85025; 85347; 85610; 85730; 86850; 86900; 86901; 92928; 93005; 93010; 93306; 93458; 94640; 94760; 97139; 99152; 99153; C1769; C1874; C1876; C1887; C1894; C9600; J1644; J1815; J1940; J2250; J2272; J2405; J2550; J2765; J3010; J3475; J7030; J7620; Q0162

== ENCOUNTER 2024-05-12 14:18 | Inpatient (IN) | payer MEDICARE ==
[2024-05-12 15:51] LABS: Amphetamine Not Detected (NotDetected); Barbiturates Screen Not Detected (NotDetected); Benzodiazepine Screen Detected (NotDetected); Cocaine Metabolite Screen Not Detected (NotDetected); Methadone Not Detected (NotDetected); Methamphetamine Not Detected (NotDetected); Opiate Screen Not Detected (NotDetected); Oxycodone Screen Not Detected (NotDetected); Phencyclidine (PCP) Not Detected (NotDetected); THC/Cannabinoid Screen Not Detected (NotDetected); Tricyclic Screen Not Detected (NotDetected)
[2024-05-12 15:57] LABS: Bacteria/HPF None Seen HPF (None Seen); Bilirubin Negative (Negative); Blood, Urine Negative (Negative); CAUTI Indications for Culture Dysuria,urgency,freq; Glucose, Urine (Dipstick) 30 mg/dL (Negative); Ketone, Urine 40 mg/dL (Negative); Leukocyte 250 Leu/uL (Negative); Nitrite Negative (Negative); Protein, Urine (Dipstick) 100 mg/dL (Neg-Trace); RBC/HPF 0-3 HPF (0-3); Specific Gravity, Urine 1.031 (1.002-1.036); Squamous Epithelial 0-3 HPF (0-3); WBC/HPF 21-50 HPF (0-3); pH, Urine 5.5 (5.0-9.0)
[2024-05-12 15:59] LABS: Clarity Turbid (Clear)
[2024-05-12 16:01] LABS: Urine Culture Reflex Yes Yes
[2024-05-12 16:43] LABS: Base Excess -3.4 mEq/L (-2.0 to +3.0); Calcium, Ionized (venous) 1.11 mmol/L (1.16-1.32); Chloride (VBG) 104 mmol/L (98-106); Hematocrit-VBG 35 % (36.0-47.0); Hemoglobin (Hb) 11.8 g/dL (11.7-16.1); Potassium (VBG) 3.71 mmol/L (3.70-5.30); pH (venous) 7.389 (7.32-7.43)
[2024-05-12 16:53] LABS: #Basophils 0.03 10x3/uL (0.0-0.2); %Basophils 0.4 % (0.0-1.0); %Eosinophils 0.4 % (0.0-10.0); %Lymphocytes 14.6 % (21.0-51.0); %Monocytes 6.7 % (0.0-10.0); %Neutrophils 77.5 % (42.0-75.0); Hemoglobin 14.6 g/dL (12.0-16.0); Mean Corpuscular HGB CONC 33.2 g/dL (32.0-36.0); Mean Corpuscular Hemoglobin 29.2 pg (27.0-31.0); Platelet Count 176 10x3/uL (130-400)
[2024-05-12 17:08] LABS: Troponin I Less than 0.010 ng/mL (< 0.028)
[2024-05-12 17:23] LABS: Acetaminophen Less than 10 mcg/mL (Less than 10); Alcohol Less than 10.0 mg/dL (Less than 10); Lipase 33 U/L (8-78); Magnesium 1.8 mg/dL (1.6-2.6); Salicylate Less than 8.0 mg/dL (Less than 8.0)
[2024-05-12 17:25] LABS: ALT (SGPT) 16 U/L (Less than 34); AST (SGOT) 33 U/L (11-34); Albumin 4.1 g/dL (3.1-4.5); Alkaline Phosphatase 70 U/L (40-110); Anion Gap 16 mmol/L (10-20); BUN (Urea Nitrogen) 30 mg/dL (9.8-20.1); Bilirubin, Total 0.8 mg/dL (0.3-1.2); Calc. Creatinine Clearance 0 mL/min (70-130); Carbon Dioxide 20 mmol/L (23-31); Chloride 108 mmol/L (98-107); Estimated GFR 83; Globulin 3.3 g/dL (2.4-3.5); Glucose 112 mg/dL (83-110); Potassium 3.5 mmol/L (3.5-5.1); Protein, Total 7.4 g/dL (5.8-8.1); Sodium 140 mmol/L (136-145)
[2024-05-12] MEDS ORDERED: CEFAZOLIN 2 GM VIAL ONE (18:05)
[2024-05-12] MEDS ORDERED: Sodium Chloride 0.9% 100 ML ONE (18:05)
[2024-05-12] MEDS ORDERED: Acetaminophen 650 MG Suppository PR PRN (18:22)
[2024-05-12] MEDS ORDERED: Dextrose 50% Abboject 50 ML SYRINGE SLOW IVP PRN (20:31)
[2024-05-12] MEDS ORDERED: Insulin Lispro 100 UNIT/ML 10 ML VIAL SC PRN ×2 (20:31)
[2024-05-12] MEDS ORDERED: Glucagon 1 MG/ML KIT IM PRN (20:31)
[2024-05-12] MEDS ORDERED: Dextrose 5% in Water 1,000 ML IV PRN (20:31)
[2024-05-12] MEDS: Aspirin 325 mg Enteric Coated Tablet PO SCH (21:48)
[2024-05-12] MEDS: cefTRIAXone\\ROCEPHIN 1 GM in Sodium Chloride 0.9% 100 ML IVPB SCH (21:48)
[2024-05-12 23:03] LABS: Influenza A by NAA Not Detected (NotDetected); Influenza B by NAA Not Detected (NotDetected); RSV by NAA Not Detected (NotDetected); SARS-CoV-2 NAA Rapid Test Not Detected (NotDetected)
[2024-05-12 23:13] VITALS: BMI 28.4
[2024-05-13 07:15] LABS: Anion Gap 15 mmol/L (10-20); BUN (Urea Nitrogen) 19 mg/dL (9.8-20.1); Calc. Creatinine Clearance 81 mL/min (70-130); Calcium 8.8 mg/dL (7.8-10.44); Carbon Dioxide 22 mmol/L (23-31); Chloride 108 mmol/L (98-107); Estimated GFR 89; Glucose 126 mg/dL (83-110); Potassium 3.5 mmol/L (3.5-5.1); Sodium 141 mmol/L (136-145)
[2024-05-13] MEDS: Aspirin 81 mg Enteric Coated Tablet PO SCH (08:27)
[2024-05-13] MEDS: Ondansetron ODT 4 MG TAB PO PRN (08:28)
[2024-05-13] MEDS: Pantoprazole 40 MG DR.TAB PO SCH (08:28)
[2024-05-13] MEDS: Lorazepam 1 MG TAB PO SCH (14:10)
[2024-05-13] MEDS: Atorvastatin Calcium 10 MG TAB PO SCH (20:17)
[2024-05-13] MEDS: Sacubitril 24MG/Valsartan 26 MG TAB PO SCH (20:17)
[2024-05-13] MEDS ORDERED: Sacubitril 24MG/Valsartan 26 MG TAB PO SCH (21:00)
[2024-05-14] MEDS: Aspirin Chewable 81 MG TAB PO SCH (08:16)
[2024-05-14] MEDS: Clopidogrel Bisulfate 75 MG TAB PO SCH (08:16)
[2024-05-14] MEDS: traZODone HCl 50 MG TAB PO SCH (08:16)
[2024-05-14] MEDS: Furosemide 40 MG TAB PO SCH (08:16)
[2024-05-14] MEDS: DULoxetine 30 MG CAP PO SCH (08:16)
[2024-05-14] MEDS: Metoprolol Succinate XL 25 MG ER.TAB PO SCH (08:16)
[2024-05-14] MEDS: Enoxaparin 40 MG (0.4 mL) SYRINGE SC SCH (08:17)
[2024-05-14] MEDS: Dapagliflozin Propanediol 10 MG TAB PO SCH (08:17)
[2024-05-14] MEDS ORDERED: Simvastatin 20 MG TAB PO SCH (09:00)
[2024-05-14] MEDS: Escitalopram Oxalate 20 mg Tablet PO SCH (10:44)
[2024-05-14] MEDS ORDERED: Artificial Tear Ophth Sol 15 ML BOT EA EYE PRN (10:54)
[2024-05-14] MEDS: Acetaminophen 325 MG TAB PO PRN (19:52)
[2024-05-15 07:09] LABS: #Basophils 0.04 10x3/uL (0.0-0.2); %Basophils 0.6 % (0.0-1.0); %Eosinophils 3.8 % (0.0-10.0); %Lymphocytes 21.2 % (21.0-51.0); %Monocytes 8.7 % (0.0-10.0); %Neutrophils 65.4 % (42.0-75.0); Hematocrit 34.3 % (36.0-47.0); Hemoglobin 11.1 g/dL (12.0-16.0); Mean Corpuscular HGB CONC 32.4 g/dL (32.0-36.0); Mean Corpuscular Hemoglobin 29.4 pg (27.0-31.0); Mean Corpuscular Volume 90.7 fL (78.0-98.0); Mean Platelet Volume 9.3 fL (7.4-10.4); Platelet Count 228 10x3/uL (130-400); RBC Distribution Width 14.5 % (11.5-14.5); Red Blood Cell (RBC) Count 3.78 mill/uL (4.20-5.40)
[2024-05-15 07:39] LABS: Anion Gap 13 mmol/L (10-20); BUN (Urea Nitrogen) 17 mg/dL (9.8-20.1); Calc. Creatinine Clearance 76 mL/min (70-130); Carbon Dioxide 27 mmol/L (23-31); Chloride 102 mmol/L (98-107); Estimated GFR 86; Glucose 134 mg/dL (83-110); Potassium 3.8 mmol/L (3.5-5.1); Sodium 138 mmol/L (136-145)
[2024-05-15] MEDS: Gabapentin 300 MG CAP PO SCH (10:02)
[2024-05-15] MEDS: Lidocaine 2% Viscous Solution 20 ML, Aluminum & Magnesium Hydroxide 30 ML, Donnatal Eli... SSW SCH (11:12)
[2024-05-15] MEDS: Meclizine HCl 25 MG TAB PO PRN (13:43)
[2024-05-15 14:09] VITALS: BP 99/66; TEMP 97.7
[2024-05-15] MEDS ORDERED: ALPRAZolam 1 MG TAB PO SCH (21:00)
== END 2024-05-15 14:02 | disposition home or self-care (01) | DRG 689 ==
LOC: ERS 14:18 → T4-A 18:22 → OBSVTOIN 05-13 11:04
PROVIDERS: ADMIT Family Medicine; ATTEND Internal Medicine
DX: N39.0 Urinary tract infection, site not specified (principal); G93.41 Metabolic encephalopathy; I50.22 Chronic systolic (congestive) heart failure; I11.0 Hypertensive heart disease with heart failure; E78.5 Hyperlipidemia, unspecified; E11.9 Type 2 diabetes mellitus without complications; Z98.890 Other specified postprocedural states; Z90.710 Acquired absence of both cervix and uterus; Z87.891 Personal history of nicotine dependence; Z91.048 Other nonmedicinal substance allergy status; Z79.899 Other long term (current) drug therapy
CPT/HCPCS: 0241U; 36415; 36416; 51701; 70450; 70551; 71045; 76014; 76018; 80048; 80053; 80306; 80307; 81001; 82140; 82805; 83605; 83690; 83735; 84484; 85025; 87040; 87086; 93005; 96361; 96365; 96367; G0378; J0696; J1650; Q0162

== ENCOUNTER 2025-03-26 11:18 | Observation (INO) | payer MEDICARE ==
[2025-03-26 12:03] LABS: #Basophils 0.03 10x3/uL (0.0-0.2); #Eosinophils 0.15 10x3/uL (0.0-0.7); #Monocytes 0.48 10x3/uL (0.11-0.59); #Neutrophils 5.19 10x3/uL (1.40-6.50); %Basophils 0.4 % (0.0-1.0); %Eosinophils 2.0 % (0.0-10.0); %Lymphocytes 22.1 % (21.0-51.0); %Monocytes 6.4 % (0.0-10.0); %Neutrophils 68.8 % (42.0-75.0); Hematocrit 37.2 % (36.0-47.0); Hemoglobin 11.9 g/dL (12.0-16.0); Mean Corpuscular Hemoglobin 28.3 pg (27.0-31.0); Mean Corpuscular Volume 88.6 fL (78.0-98.0); Platelet Count 256 10x3/uL (130-400); Red Blood Cell (RBC) Count 4.20 mill/uL (4.20-5.40); White Blood Cell (WBC) Count 7.54 10x3/uL (4.8-10.8)
[2025-03-26] MEDS ORDERED: Aspirin 81 mg Enteric Coated Tablet ONE (12:18)
[2025-03-26] MEDS ORDERED: Aspirin Chewable 81 MG TAB ONE (12:20)
[2025-03-26 12:23] LABS: ALT (SGPT) 25 U/L (Less than 34); AST (SGOT) 28 U/L (11-34); Albumin 4.1 g/dL (3.1-4.5); Alkaline Phosphatase 88 U/L (40-110); Anion Gap 19 mmol/L (10-20); BUN (Urea Nitrogen) 14 mg/dL (9.8-20.1); Bilirubin, Total 0.5 mg/dL (0.3-1.2); Calc. Creatinine Clearance 0 mL/min (70-130); Calcium 9.5 mg/dL (7.8-10.44); Carbon Dioxide 23 mmol/L (23-31); Chloride 102 mmol/L (98-107); Globulin 2.8 g/dL (2.4-3.5); Glucose 127 mg/dL (83-110); Magnesium 1.7 mg/dL (1.6-2.6); Potassium 3.5 mmol/L (3.5-5.1); Sodium 140 mmol/L (136-145)
[2025-03-26] MEDS ORDERED: Ondansetron PF 4 MG/2 ML Vial ONE (15:44)
[2025-03-26] MEDS ORDERED: Senokot S 8.6-50 MG TAB PO PRN (15:57)
[2025-03-26] MEDS ORDERED: Nitroglycerin 0.4 MG TAB (25 Tab Bottle) SL PRN (15:57)
[2025-03-26] MEDS ORDERED: Ondansetron PF 4 MG/2 ML Vial IVP PRN (15:57)
[2025-03-26] MEDS ORDERED: Acetaminophen 325 MG TAB ONE (16:36)
[2025-03-26] MEDS: Acetaminophen 325 MG TAB PO PRN (16:41)
[2025-03-26] MEDS ORDERED: Prochlorperazine 10 MG/2 ML VIAL ONE (18:48)
[2025-03-26] MEDS ORDERED: diphenhydrAMINE 50 MG/ML VIAL ONE (19:53)
[2025-03-26] MEDS: Prochlorperazine 10 MG/2 ML VIAL SLOW IVP SCH (20:32)
[2025-03-26] MEDS: Melatonin 3 MG TAB PO PRN (21:10)
[2025-03-26] MEDS ORDERED: Famotidine 20 MG TAB ONE (22:58)
[2025-03-26] MEDS: Famotidine 20 MG TAB PO SCH (23:00)
[2025-03-27 00:03] VITALS: BMI 28.2
[2025-03-27 05:41] LABS: Cardiac Risk 4.9 (Less than 4.5); Cholesterol 195.0 mg/dl (< 200 Desired); HDL Cholesterol 40.0 mg/dL (>60 Neg Risk); LDL Cholesterol, Calculated 128.0 mg/dL; Triglycerides 134.0 mg/dL (Less than 150)
[2025-03-27] MEDS: Furosemide 40 MG TAB PO SCH (08:33)
[2025-03-27] MEDS: Aspirin Chewable 81 MG TAB PO SCH (08:33)
[2025-03-27] MEDS: Enoxaparin 40 MG (0.4 mL) SYRINGE SC SCH (08:33)
[2025-03-27] MEDS ORDERED: Glucagon 1 MG/ML KIT IM PRN (11:23)
[2025-03-27] MEDS ORDERED: Dextrose 50% Abboject 50 ML SYRINGE SLOW IVP PRN (11:23)
[2025-03-27 11:54] VITALS: BMI 28.2
[2025-03-27 16:22] VITALS: BP 114/76; TEMP 97.6
[2025-03-27 16:36] LABS: Bacteria/HPF 2+ HPF (None Seen); CAUTI Indications for Culture Dysuria,urgency,freq; Glucose, Urine (Dipstick) Normal (Negative); Leukocyte 500 Leu/uL (Negative); Protein, Urine (Dipstick) 50 mg/dL (Neg-Trace); Specific Gravity, Urine 1.007 (1.002-1.036); WBC/HPF Greater than 50 HPF (0-3)
[2025-03-27 16:37] LABS: Urine Culture Reflex Yes Yes
[2025-03-27] MEDS: cefTRIAXone\\ROCEPHIN 2 GM in Sodium Chloride 0.9% 100 ML IVPB SCH (17:04)
== END 2025-03-27 18:11 | disposition home or self-care (01) ==
LOC: ERS 11:18 → ERHOLD 15:51 → OBS 23:25
PROVIDERS: ADMIT Internal Medicine; ATTEND Family Medicine
PROC: B24BZZZ Ultrasonography of Heart with Aorta (ICD-10-PCS; principal; 2025-03-26)
DX: I08.1 Rheumatic disorders of both mitral and tricuspid valves (principal); I48.0 Paroxysmal atrial fibrillation; I25.5 Ischemic cardiomyopathy; I25.10 Atherosclerotic heart disease of native coronary artery without angina pectoris; E11.9 Type 2 diabetes mellitus without complications; M54.2 Cervicalgia; N39.0 Urinary tract infection, site not specified; Z85.3 Personal history of malignant neoplasm of breast; Z95.5 Presence of coronary angioplasty implant and graft; Z95.0 Presence of cardiac pacemaker; Z87.891 Personal history of nicotine dependence; Z90.710 Acquired absence of both cervix and uterus; Z98.890 Other specified postprocedural states; Z91.013 Allergy to seafood; Z91.048 Other nonmedicinal substance allergy status; Z79.899 Other long term (current) drug therapy
CPT/HCPCS: 70450; 71045; 80053; 80061; 81001; 82962; 83735; 83880; 84484 ×2; 85025; 87077; 87086; 87186; 93005; 93306; 96372; 96374 ×2; 96375; 99285; G0378 ×3; J0696; J0780; J1200; J1650; J1815; J2405; 36415; 36416